=== PATIENT | male | born 1960 | race Caucasian/White ===

== ENCOUNTER 2018-06-29 11:14 | Observation (INO) ==
[2018-06-29] MEDS ORDERED: Bisacodyl 10 MG Supp RECTAL PRN (17:15)
[2018-06-29] MEDS: Sod Chloride 0.9% Inj 1,000 ML IV.CONT SCH (19:51)
[2018-06-29] MEDS: Acetaminophen 325 MG Tablet PO PRN (20:17)
[2018-06-30] MEDS: Sod Chloride 0.9% Inj 1,000 ML IV.CONT SCH ×2 (05:40→12:41)
[2018-06-30] MEDS: Acetaminophen 325 MG Tablet PO PRN (08:05)
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
== END 2018-06-30 16:35 | disposition home or self-care (01) ==
LOC: PHEDDLT 18:49 → INTOOBSV 18:50 → PH3 18:50
PROVIDERS: ADMIT Hospitalist; ATTEND Hospitalist